=== PATIENT | female | born 1960 | race Caucasian/White ===

== ENCOUNTER 2022-03-26 08:00 | Outpatient (CLI) | payer BC ==
[~2022-03-26] VITALS: Ht 170.2 cm; Wt 73.9 kg
== END 2022-03-26 16:00 | disposition home or self-care (01) ==
LOC: SLB 08:00
PROVIDERS: ATTEND Internal Medicine Gastroenterology
DX: Z01.818 Encounter for other preprocedural examination (principal); R10.9 Unspecified abdominal pain; Z20.822 Contact with and (suspected) exposure to COVID-19
CPT/HCPCS: 36415

== ENCOUNTER 2022-06-02 05:30 | Day surgery (SDC) | payer BC ==
[~2022-06-02] VITALS: Ht 170.2 cm; Wt 72.6 kg
[2022-06-02 06:37] LABS: BASOPHILS # (AUTO) 0.1 K/uL (0.0-0.2); BASOPHILS % (AUTO) 0.9 % (0.0-2.0); EOSINOPHILS # (AUTO) 0.1 K/uL (0.0-0.4); EOSINOPHILS % (AUTO) 1.4 % (0.0-4.0); HEMATOCRIT 39.4 % (36-48); HEMOGLOBIN 13.2 g/dL (12.0-16.0); LYMPHOCYTES # (AUTO) 1.5 K/uL (1.0-5.5); LYMPHOCYTES % (AUTO) 25.2 % (20.5-51.5); MEAN CORPUSCULAR HEMOGLOBIN 30 pg (27-31); MEAN CORPUSCULAR HGB CONC 33 % (32-36); MEAN CORPUSCULAR VOLUME 91 fL (79.0-98.0); MONOCYTES # (AUTO) 0.4 K/uL (0.0-1.0); MONOCYTES % (AUTO) 7.4 % (1.7-9.3); NEUTROPHILS # (AUTO) 3.9 K/uL (1.8-7.7); NEUTROPHILS % (AUTO) 65.1 % (40.0-70.0); PLATELET COUNT (AUTO) 188 K/uL (130-430); RED BLOOD CELL COUNT(AUTO) 4.34 MIL/uL (4.2-6.2); RED CELL DISTRIBUTION WIDTH 14.7 % (9.0-15.0)
[2022-06-02 06:53] LABS: ALBUMIN 3.6 g/dL (3.4-4.8); CALCIUM 8.6 mg/dL (8.4-11.0); CREATININE 1.04 mg/dL (0.55-1.30); TOTAL BILIRUBIN 0.2 mg/dL (0.0-1.0)
[2022-06-02 07:25] LABS: INR 0.9 (0.8-1.2); PROTHROMBIN TIME 9.6 SECS (9.5-12.5)
[2022-06-02] MEDS ORDERED: PROPOFOL 200MG/ 20ML VIAL (DIPRIVAN) IV ONE (07:57)
[2022-06-02] MEDS ORDERED: ONDANSETRON HCL 4 MG/2 ML VIAL IVP PRN (08:00)
[2022-06-02] MEDS ORDERED: LR 500 ML IV SCH (08:00)
[2022-06-02] MEDS ORDERED: MEPERIDINE HCL/PF 25 MG/ML DISP.SYRIN IVP PRN (08:00)
[2022-06-02 13:55] VITALS: BP_SYST 118
== END 2022-06-02 10:00 | disposition home or self-care (01) ==
LOC: SDS 05:30 → SMU 05:30 → SDS 10:00
PROVIDERS: ATTEND Internal Medicine Gastroenterology
DX: R10.9 Unspecified abdominal pain (principal); R19.4 Change in bowel habit; K29.50 Unspecified chronic gastritis without bleeding; K44.9 Diaphragmatic hernia without obstruction or gangrene; K31.84 Gastroparesis; F41.9 Anxiety disorder, unspecified; M19.90 Unspecified osteoarthritis, unspecified site; Z79.899 Other long term (current) drug therapy; Z20.822 Contact with and (suspected) exposure to COVID-19
CPT/HCPCS: 43239; 87426; 80053; 87081; 85025; 85610; 85730; 36415; 88305; 88312; 88313; J2704